=== PATIENT | female | born 1990 | race Caucasian/White ===

== ENCOUNTER 2019-06-27 09:45 | Emergency (ER) | payer SELFPAY ==
[~2019-06-27] VITALS: Ht 162.6 cm; Wt 88.0 kg
[2019-06-27 09:53] VITALS: BP 129/78
--- NOTE | 2019-06-27 09:54 | NUR ---
TO ED 11 WITH STEADY GAIT.
--- NOTE | 2019-06-27 10:05 | NUR ---
PATIENT COMPLAINS OF COUGH SINCE LAST TUESDAY. PATIENT STATES SHE HAS RUNNY NOSE, COLD, DRY COUGH, AND SNEEZING. LUNGS CLEAR TO AUSCULATION BILATERALLY. CHEST PAIN PRESENT WITH COUGH. PAIN 7/10. PATIENT HAS BEEN TAKING DAYQUIL AND IBUPROFEN. VS STABLE, PATIENT IS ALERT AND AWAKE, BED IN LOWEST POSITION, LOCKED, AND BEDRAIL UPX1. NO PAST MEDICAL HISTORY.
--- NOTE | 2019-06-27 10:05 | NUR ---
DOCTOR ISAAC AT BEDSIDE
--- NOTE | 2019-06-27 10:18 | NUR ---
XRAY AT BEDSIDE
[2019-06-27 10:49] VITALS: BP 128/80
--- NOTE | 2019-06-27 10:52 | NUR ---
Patient discharged with v/s stable. Written and verbal after care instructions given ABOUT VIRAL INFECTION and explained. Patient verbalized understanding OF VIRAL INFECTION. Ambulatory with steady gait. All questions addressed prior to discharge. Advised to follow up with PMD. PATIENT GIVEN EXCUSE FOR WORK.
== END 2019-06-27 10:52 | disposition home or self-care (01) ==
LOC: MED 09:45
DX: B34.9 Viral infection, unspecified (principal)
CPT/HCPCS: 71045; 99283; Q0092

== ENCOUNTER 2022-02-10 11:01 | Emergency (ER) | payer OTHER ==
[~2022-02-10] VITALS: Ht 160 cm; Wt 109.8 kg
[2022-02-10 11:04] VITALS: BP 143/78
--- NOTE | 2022-02-10 11:06 | NUR ---
PT AMBULATED TO BED 07.
--- NOTE | 2022-02-10 11:20 | NUR ---
31 Y/O FEMALE C/O R ELBOW PAIN X4 WEEKS. PT REPORTS GOING TO THE GYM YESTERDAY AND DID PULL UPS AND STATES THAT THE PAIN INCREASED. PT DENIES PREVIOUS INJURY/TRAUMA. DENIES SEEING PHYSICIAN ABOUT PAIN UNTIL NOW SINCE PAIN HAS INCREASED. MILD SWELLING WITH MILD BRUISING/RED DOTS TO ELBOW. FULL ROM. +2 RADIAL PULSES EQUAL BILATERALLY. PT REPORTS TINGLING DOWN ARM WITH PAIN INCREASES WITH MOVEMENT. DENIES NUMBNESS AT THIS TIME BUT REPORTS NUMBNESS WHEN SHE WAKES UP. PT DENIES TAKING ANYTHING FOR PAIN. PT A/O X4 WITH EVEN AND UNLABORED RESPIRATIONS. PMH:DENIES NKDA
--- NOTE | 2022-02-10 11:45 | NUR ---
DR BURNS AT BEDSIDE EVALUATING PT
[2022-02-10] MEDS ORDERED: KETOROLAC 30 MG/ML VIAL IM ONE (11:55)
[2022-02-10] MEDS ORDERED: methylPREDNISolone SS 125 MG/2 ML VIAL IVP ONE (11:55)
[2022-02-10] MEDS ORDERED: IBUP-1842 PO (11:59)
--- NOTE | 2022-02-10 12:21 | NUR ---
Patient discharged with v/s stable. Written and verbal after care instructions ABOUT TENNIS ELBOW AND TENNIS ELBOW REHAB given and explained. Patient alert, oriented and verbalized understanding of instructions. Ambulatory with steady gait. All questions addressed prior to discharge. ID band removed. Patient advised to follow up with PMD. Rx of IBUPROFEN given. Patient educated on indication of medication including possible reaction and side effects. Opportunity to ask questions provided and answered.
== END 2022-02-10 12:21 | disposition home or self-care (01) ==
LOC: MED 11:01
DX: M77.11 Lateral epicondylitis, right elbow (principal)
CPT/HCPCS: 81002; 81025; 96372; 96374; 99284; J1885; J2930

== ENCOUNTER 2022-11-24 14:34 | Emergency (ER) | payer MEDICAID, OTHER ==
[~2022-11-24] VITALS: Ht 160 cm; Wt 108.9 kg
[~2022-11-24 14:34] MED LIST: IBUP-1842 PO
[2022-11-24 14:51] VITALS: BP 135/69
--- NOTE | 2022-11-24 15:16 | NUR ---
32/F WALKED IN C/O LEFT SIDED HEADACHE ONSET 4 DAYS AGO. PT REPORTS TAKING ATBX FOR EAR INFECTION TO THE LEFT SIDE. 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 DENIES DIZZINESS OR NV. PMH: DENIES
[2022-11-24 16:14] LABS: BASOPHILS # (AUTO) 0.1 K/uL (0.00-0.22); BASOPHILS % (AUTO) 0.9 % (0.0-2.0); EOSINOPHILS # (AUTO) 0.3 K/uL (0-0.4); EOSINOPHILS % (AUTO) 3.1 % (0.0-4.0); HEMATOCRIT 41.2 % (36-48); HEMOGLOBIN 14.2 g/dL (12.0-16.0); LYMPHOCYTES % (AUTO) 34.1 % (20.5-51.1); MEAN CORPUSCULAR HEMOGLOBIN 32 pg (27-31); MEAN CORPUSCULAR HGB CONC 34 g/dL (33-37); MEAN CORPUSCULAR VOLUME 93.6 fL (80-94); MONOCYTES # (AUTO) 0.4 K/uL (0.8-1.0); MONOCYTES % (AUTO) 4.9 % (1.7-9.3); PLATELET COUNT (AUTO) 338 K/uL (140-450); RED CELL DISTRIBUTION WIDTH 13.5 % (11.6-13.7); WHITE BLOOD COUNT (AUTO) 8.8 K/uL (4.8-10.8)
[2022-11-24 16:16] LABS: APPEARANCE,URINE CLEAR (CLEAR); BILIRUBIN,URINE NEGATIVE (NEGATIVE); BLOOD, URINE 3+ (NEGATIVE); COLOR,URINE YELLOW (YELLOW); LEUKOCYTE ESTERASE ,URINE 2+ (NEGATIVE); NITRITE, URINE NEGATIVE (NEGATIVE); UGLUCOSE NEGATIVE (NEGATIVE)
[2022-11-24 16:30] LABS: ALBUMIN 3.4 g/dL (3.4-5.0); ANION GAP 13.7 (8-16); CARBON DIOXIDE 27.7 mmol/L (21-32); CREATININE 0.9 mg/dL (0.6-1.3); POTASSIUM 4.4 mmol/L (3.5-5.1); TOTAL BILIRUBIN 0.3 mg/dL (0.0-1.0)
[2022-11-24 16:38] LABS: RBC,URINE 11-20 (MOD) /HPF (0-5)
[2022-11-24] MEDS ORDERED: NITR100C7 PO (16:55)
== END 2022-11-24 16:50 | disposition home or self-care (01) ==
LOC: MED 14:34
DX: R51.9 Headache, unspecified (principal); N39.0 Urinary tract infection, site not specified
CPT/HCPCS: 36415; 80053; 81001; 81025; 83690; 85025; 87086; 99283

== ENCOUNTER 2022-12-20 21:31 | Inpatient (IN) | payer OTHER ==
[~2022-12-20] VITALS: Ht 157.5 cm; Wt 103.9 kg
[~2022-12-20 21:31] MED LIST changes: +NITR100C7 PO
[2022-12-20 22:13] VITALS: BP 131/94
[2022-12-20 23:19] LABS: BASOPHILS # (AUTO) 0.1 K/uL (0.00-0.22); BASOPHILS % (AUTO) 0.6 % (0.0-2.0); EOSINOPHILS # (AUTO) 0.1 K/uL (0-0.4); EOSINOPHILS % (AUTO) 0.6 % (0.0-4.0); HEMATOCRIT 41.5 % (36-48); LYMPHOCYTES # (AUTO) 2.5 K/uL (2.5-16.5); LYMPHOCYTES % (AUTO) 13.9 % (20.5-51.1); MEAN CORPUSCULAR HEMOGLOBIN 31 pg (27-31); MEAN CORPUSCULAR HGB CONC 34 g/dL (33-37); MEAN CORPUSCULAR VOLUME 92.1 fL (80-94); MONOCYTES % (AUTO) 5.7 % (1.7-9.3); NEUTROPHILS # (AUTO) 14.2 K/uL (1.8-7.7); NEUTROPHILS % (AUTO) 79.2 % (42.2-75.2); PLATELET COUNT (AUTO) 257 K/uL (140-450); RED CELL DISTRIBUTION WIDTH 13.1 % (11.6-13.7); WHITE BLOOD COUNT (AUTO) 17.9 K/uL (4.8-10.8)
[2022-12-20 23:34] LABS: APPEARANCE,URINE SL CLOUDY (CLEAR); BILIRUBIN,URINE NEGATIVE (NEGATIVE); BLOOD, URINE TRACE-I (NEGATIVE); COLOR,URINE YELLOW (YELLOW); LEUKOCYTE ESTERASE ,URINE NEGATIVE (NEGATIVE); NITRITE, URINE NEGATIVE (NEGATIVE); UGLUCOSE NEGATIVE (NEGATIVE)
[2022-12-20 23:46] LABS: RBC,URINE 0-5 /HPF (0-5); WBC,URINE 0-5 /HPF (0-5)
[2022-12-20 23:59] LABS: ANION GAP 12.6 (8-16); CARBON DIOXIDE 28.2 mmol/L (21-32); CREATININE 0.8 mg/dL (0.6-1.3); POTASSIUM 3.8 mmol/L (3.5-5.1)
[2022-12-21 00:04] LABS: ALBUMIN 3.7 g/dL (3.4-5.0)
--- NOTE | 2022-12-21 00:29 | NUR ---
PT AMBULATED TO ER BED 5
[2022-12-21] MEDS ORDERED: ONDANSETRON 4 MG/2 ML VIAL IVP PRN ×2 (01:20→17:15)
[2022-12-21] MEDS ORDERED: MORPHINE SULFATE 10 MG/ML VIAL IVP ONE (01:20)
--- NOTE | 2022-12-21 02:00 | NUR ---
32YR OLD FEMALE BIB SELF C/O ABD PAIN X1DAY. PT STATES HAVING PAIN IN RLQ X1DAY. DENIES N/V/D DENIES FEVER CP OR SOB. PT IS 1MONTH POST PART. FULL TERM DELIVERY. DENIES VAG BLEEDING. 5/10 SHARP PAIN RESP EVEN AND UNLABORED. ON BEDSIDE QUILTER FIXER. IS AT BEDSIDE NKDA NO MED HX
[2022-12-21] MEDS ORDERED: LORazepam 2 MG/ML VIAL IVP ONE (02:40)
[2022-12-21] MEDS: LACTATED RINGERS 1,000 ML IV SCH ×3 (02:49→23:38)
--- NOTE | 2022-12-21 02:59 | NUR ---
PT WILL BE GOING TO SURGERY IN AM. PT DOES HAVE A APPENDICITIS. PT IS AWARE OF ADMISSION AND SURGERY. PT BECAME VERY ANXIOUS STARTED SHAKING STATING SHE WAS COLD. PT IS ON CONTROL VALVE MECHANIC HR 126 EKG DONE AT BEDSIDE.
[2022-12-21] MEDS ORDERED: NACL 0.9% 1,000 ML IV ONE (03:05)
--- NOTE | 2022-12-21 03:35 | NUR ---
PT IS NPO
--- NOTE | 2022-12-21 04:01 | NUR ---
PT SLEEPING ON BEDSIDE FREEZER OPERATOR. HOB ELEVATED. RESP EVEN AND UNLABORED. HR 135 . AT BEDSIDE
--- NOTE | 2022-12-21 07:50 | NUR ---
Patients having anxiety attack. Paged Dr Jerez. Waiting for call back from doctor
[2022-12-21 07:56] LABS: PROTHROMBIN TIME 9.8 secs (10.8-13.4)
[2022-12-21] MEDS ORDERED: LORazepam 2 MG/ML VIAL IM/IVP PRN (08:30)
[2022-12-21 08:51] VITALS: BP 106/44
--- NOTE | 2022-12-21 08:51 | NUR ---
PT ARRIVED TO UNIT VIA GUNEY. AMBULATED FROM GURNEY TO BED. ORIENTED PT TO UNIT, RESTROOM, AND CALL LIGHT. PT IS AOX4, ABLE TO VERBALIZE NEEDS. RESPIRATIONS EVEN AND UNLABORED ON RA. SKIN WARM AND DRY. IV ON R HAND 22G INFUSING LR @ 75. CALL LIGHT WITHIN REACH, ALL SAFETY PRECAUTIONS IN PLACE.
--- NOTE | 2022-12-21 08:59 | NUR ---
Patient will be admitted to care of Dr Jerez. Admited to telemetry. Will go to room 106A. Belongings list completed. Report to Beba GUZMÁN.
--- NOTE | 2022-12-21 09:04 | NUR ---
PATIENT HAS BEEN SCREENED AND CATEGORIZED LOW NUTRITION RISK. PATIENT WILL BE SEEN WITHIN 7 DAYS OF ADMISSIO 12/21/22-12/28/[address] BY RUDOLPH GANT RD
[2022-12-21] MEDS: MORPHINE SULFATE 4 MG/ML SYR IVP PRN ×2 (13:30→21:32)
--- NOTE | 2022-12-21 15:27 | NUR ---
PT TAKEN OFF UNIT TO OR
[2022-12-21] MEDS ORDERED: BUPIVACAINE-MPF/EPI 0.25% 30 ML VIAL INJ ONE (15:44)
[2022-12-21] MEDS ORDERED: SUCCINYLCHOLINE CHLORIDE 200 MG/10 ML VIAL IVP ONE (16:00)
[2022-12-21] MEDS ORDERED: PROPOFOL 200 MG/20 ML VIAL IV ONE (16:00)
--- NOTE | 2022-12-21 16:00 | NUR ---
PATIENT BACK IN MST
[2022-12-21] MEDS ORDERED: DESFLURANE 240 ML BTL INH ONE (16:15)
[2022-12-21] MEDS ORDERED: KETOROLAC 30 MG/ML VIAL ONE (16:25)
[2022-12-21] MEDS ORDERED: DEXAMETHASONE 4 MG/ML VIAL ONE (16:25)
[2022-12-21] MEDS ORDERED: ONDANSETRON 4 MG/2 ML VIAL ONE (16:25)
[2022-12-21] MEDS ORDERED: ROCURONIUM 50 MG/5 ML VIAL IV ONE (16:25)
[2022-12-21] MEDS ORDERED: fentaNYL citrate 0.05 MG/ML VIAL ONE (16:26)
[2022-12-21] MEDS ORDERED: SUGAMMADEX SODIUM 200 MG/2 ML VIAL IV ONE (16:27)
[2022-12-21] MEDS ORDERED: HYDROmorphone PFS 2 MG/ML SYR ONE (16:27)
[2022-12-21] MEDS ORDERED: HYDROmorphone 1 MG/ML AMP IVP PRN (17:15)
--- NOTE | 2022-12-21 19:10 | NUR ---
ENDORSED PATIENT TO EARLY CHILDHOOD DIRECTOR NURSE FOR CONTINUITY OF CARE. PT STABLE.
[2022-12-21 20:00] VITALS: BP 120/80
[2022-12-22] MEDS: ACETAMINOPHEN 325 MG TAB PO PRN ×2 (06:47→13:00)
[2022-12-22 06:51] LABS: BASOPHILS % (AUTO) 0.2 % (0.0-2.0); HEMATOCRIT 37.3 % (36-48); HEMOGLOBIN 12.6 g/dL (12.0-16.0); LYMPHOCYTES % (AUTO) 7.5 % (20.5-51.1); MEAN CORPUSCULAR HEMOGLOBIN 31 pg (27-31); MEAN CORPUSCULAR HGB CONC 34 g/dL (33-37); MEAN CORPUSCULAR VOLUME 92.4 fL (80-94); MONOCYTES # (AUTO) 0.4 K/uL (0.8-1.0); MONOCYTES % (AUTO) 3.3 % (1.7-9.3); NEUTROPHILS # (AUTO) 11.7 K/uL (1.8-7.7); PLATELET COUNT (AUTO) 180 K/uL (140-450); RED BLOOD CELL COUNT(AUTO) 4.03 MIL/uL (4.20-5.40); RED CELL DISTRIBUTION WIDTH 13.6 % (11.6-13.7); WHITE BLOOD COUNT (AUTO) 13.1 K/uL (4.8-10.8)
[2022-12-22 07:07] LABS: ANION GAP 13.2 (8-16); CARBON DIOXIDE 24.2 mmol/L (21-32); CREATININE 0.9 mg/dL (0.6-1.3); POTASSIUM 3.4 mmol/L (3.5-5.1)
[2022-12-22 08:00] VITALS: BP 120/70
[2022-12-22] MEDS: HYDROcodone/APAP 5/325 MG 1 TAB TAB PO PRN ×3 (10:16→20:55)
[2022-12-22] MEDS ORDERED: POTASSIUM CHLORIDE 10 MEQ TABER PO SCH (11:31)
[2022-12-22] MEDS: POTASSIUM CHL 20 MEQ/D5-1/2NS 1,000 ML IV SCH ×2 (11:42→21:30)
[2022-12-22 16:00] VITALS: BP 130/80
--- NOTE | 2022-12-22 17:46 | NUR ---
Patient ambulation for second time via 1 person standby assist in main hallway of [facility].
[2022-12-23] MEDS: HYDROcodone/APAP 5/325 MG 1 TAB TAB PO PRN ×2 (07:59→13:13)
[2022-12-23 08:00] VITALS: BP 133/75
[2022-12-23] MEDS: POTASSIUM CHL 20 MEQ/D5-1/2NS 1,000 ML IV SCH (08:00)
--- NOTE | 2022-12-23 12:03 | NUR ---
Doctor Sheila request for stat potassium and follow up with result to his phone.
--- NOTE | 2022-12-23 13:17 | NUR ---
Left message with Viktoria for Doctor Sheila regarding potassium result of 3.9 mg/dL.
--- NOTE | 2022-12-23 14:21 | NUR ---
DISCHARGE PLANNING: THIS IS A 32 Y/O FEMALE PATIENT FROM HOME, WHO CAME IN TO THE ED FOR 1 DAY HISTORY OF INTRACTABLE RLQ PAIN. PATIENT PRESENTED TACHYCARDIC AND MILDLY HYPERTENSIVE. DENIES PAST MEDICAL AND SURGICAL HISTORY. ALL INFORMATION OBTAINED FROM ED DOCUMENTATION. CT ABD/PELVIS SHOWED ACUTE APPENDICITIS. SURGERY CONSULTED. S/P LAP APPY 12.21.22. ON IV CEFOXITN. TOLERATED REGULAR DIET. AMBULATING. PER SURGERY, DC PLANNING PER HOSPITALIST AND TO FOLLOW UP AT CLINIC AFTER 10 DAYS. TENTATIVE DC PLAN TO HOME ONCE STABLE AND CLEARED BY ATTENDING. CM TO FOLLOW NEEDED.
[2022-12-23 16:00] VITALS: BP 112/69
[2022-12-23] MEDS ORDERED: AMOX-999 PO (16:15)
[2022-12-23] MEDS ORDERED: ACET-8905 PO (16:16)
[2022-12-23] MEDS: ACETAMINOPHEN 325 MG TAB PO PRN (16:23)
[2022-12-23 17:36] VITALS: BP 112/69
== END 2022-12-23 18:00 | disposition home or self-care (01) | DRG 854 ==
LOC: MED 21:31 → MTU 12-21 01:25 → OBSVTOIN 12-21 01:25 → MTU 12-21 01:25
PROVIDERS: ADMIT Student in an Organized Health Care Education/Training Program; ATTEND Student in an Organized Health Care Education/Training Program
PROC: 0DTJ4ZZ Resection of Appendix, Percutaneous Endoscopic Approach (ICD-10-PCS; principal; 2022-12-21 16:00)
DX: A41.9 Sepsis, unspecified organism (principal); K35.891 Other acute appendicitis without perforation, with gangrene; Z68.41 Body mass index [BMI] 40.0-44.9, adult; I10 Essential (primary) hypertension; D72.829 Elevated white blood cell count, unspecified; E87.6 Hypokalemia; E66.01 Morbid (severe) obesity due to excess calories; Z20.822 Contact with and (suspected) exposure to COVID-19
CPT/HCPCS: 36415; 71045; 80048; 80053; 81001; 82374; 83605; 83690; 84132; 85025; 85610; 85730; 86886; 86900; 86901; 87040; 87070; 87075; 87205; 96365; 96376; 99285; C1758; J0330; J0694; J1100; J1170; J1885; J2060; J2270; J2405; J2704; J3010; J3490; J7060; J7120; Q0092

== ENCOUNTER 2022-12-28 08:32 | Inpatient (IN) | payer OTHER ==
[~2022-12-28] VITALS: Ht 162.6 cm; Wt 105.2 kg
[~2022-12-28 08:32] MED LIST changes: +ACET-8905 PO; +AMOX-999 PO; -NITR100C7 PO
[2022-12-28 08:50] VITALS: BP 133/73
[2022-12-28 09:13] LABS: APPEARANCE,URINE HAZY (CLEAR); BILIRUBIN,URINE NEGATIVE (NEGATIVE); BLOOD, URINE 3+ (NEGATIVE); COLOR,URINE YELLOW (YELLOW); LEUKOCYTE ESTERASE ,URINE 1+ (NEGATIVE); NITRITE, URINE NEGATIVE (NEGATIVE); UGLUCOSE NEGATIVE (NEGATIVE)
[2022-12-28 10:03] LABS: BASOPHILS # (AUTO) 0.1 K/uL (0.00-0.22); BASOPHILS % (AUTO) 0.5 % (0.0-2.0); EOSINOPHILS # (AUTO) 0.1 K/uL (0-0.4); EOSINOPHILS % (AUTO) 0.8 % (0.0-4.0); HEMATOCRIT 32.2 % (36-48); HEMOGLOBIN 11.2 g/dL (12.0-16.0); LYMPHOCYTES # (AUTO) 2.4 K/uL (2.5-16.5); LYMPHOCYTES % (AUTO) 15.5 % (20.5-51.1); MEAN CORPUSCULAR HEMOGLOBIN 31 pg (27-31); MEAN CORPUSCULAR HGB CONC 35 g/dL (33-37); MEAN CORPUSCULAR VOLUME 90.1 fL (80-94); MONOCYTES # (AUTO) 1.5 K/uL (0.8-1.0); NEUTROPHILS # (AUTO) 11.2 K/uL (1.8-7.7); NEUTROPHILS % (AUTO) 73.2 % (42.2-75.2); PLATELET COUNT (AUTO) 463 K/uL (140-450); RED BLOOD CELL COUNT(AUTO) 3.57 MIL/uL (4.20-5.40); RED CELL DISTRIBUTION WIDTH 14.4 % (11.6-13.7); WHITE BLOOD COUNT (AUTO) 15.3 K/uL (4.8-10.8)
[2022-12-28 11:20] LABS: ALBUMIN 2.2 g/dL (3.4-5.0); ANION GAP 15.1 (8-16); CARBON DIOXIDE 28.5 mmol/L (21-32); CREATININE 0.7 mg/dL (0.6-1.3); POTASSIUM 3.6 mmol/L (3.5-5.1); TOTAL BILIRUBIN 0.3 mg/dL (0.0-1.0)
[2022-12-28] MEDS ORDERED: VANCOMYCIN 1,000 MG in DEXTROSE 5% 250 ML IV ONE (12:50)
[2022-12-28] MEDS ORDERED: PIPERACILLIN/TAZOBACTAM 3.375 GM in DEXTROSE 5% 50 ML IV ONE (12:50)
[2022-12-28] MEDS ORDERED: NACL 0.9% 1,000 ML IV ONE ×2 (12:55)
[2022-12-28] MEDS ORDERED: ONDANSETRON 4 MG/2 ML VIAL IVP PRN (13:30)
[2022-12-28] MEDS ORDERED: MAG SULF 2000 MG/WATER PREMIX 50 ML IV PRN (13:30)
[2022-12-28] MEDS ORDERED: LORazepam 1 MG TAB PO PRN (13:30)
[2022-12-28] MEDS ORDERED: KCL 20 MEQ IN 100 mL PREMIX 200 ML IV PRN (13:30)
[2022-12-28] MEDS ORDERED: MORPHINE SULFATE 4 MG/ML SYR IVP PRN (13:30)
[2022-12-28] MEDS ORDERED: PIPERACILLIN/TAZOBACTAM 3.375 GM VIAL IV ONE (14:08)
[2022-12-28 14:55] LABS: ALBUMIN 2.2 g/dL (3.4-5.0); ANION GAP 10.2 (8-16); CARBON DIOXIDE 29.2 mmol/L (21-32); CREATININE 0.7 mg/dL (0.6-1.3); POTASSIUM 3.4 mmol/L (3.5-5.1); TOTAL BILIRUBIN 0.3 mg/dL (0.0-1.0)
[2022-12-28] MEDS ORDERED: CLONIDINE HYDROCHLORIDE 0.1 MG TAB PO PRN (15:05)
[2022-12-28] MEDS ORDERED: cefTRIAXone 1,000 MG VIAL ONE (15:32)
[2022-12-28] MEDS: ACETAMINOPHEN 325 MG TAB PO PRN (16:11)
--- NOTE | 2022-12-28 16:27 | NUR ---
PT ARRIVED ON UNIT VIA WHEELCHAIR FROM ER. ORIENTED PT TO UNIT, BED MECHANICS, CALL LIGHT. PT STATES SHE IS FREEZING, TEMPORAL TEMP UPON ARRIVAL 97.7. REASSESSED TEMP, 100.1. PROVIDED NONPHARM INTERVENTIONS FOR SLIGHT FEVER. WILL CONTINUE WITH PATIENT CARE.
[2022-12-28 16:30] VITALS: BP 144/78
[2022-12-28] MEDS: NACL 0.9% 1,000 ML IV SCH (16:30)
--- NOTE | 2022-12-28 16:40 | NUR ---
Patient will be admitted to care of MD KIANA. Admited to MED SURG. Will go to room 104A. Belongings list completed. Report to NESHA CORTEZ.
[2022-12-28] MEDS: HYDROcodone/APAP 5/325 MG 1 TAB TAB PO PRN (17:26)
--- NOTE | 2022-12-28 19:20 | NUR ---
ENDORSED PT TO NIGHTSHIFT NURSE FOR CONTINUITY OF CARE. PT STABLE, IN BED, NO SIGNS OF DISTRESS, NO REPORTS OF PAIN OR DISCOMFORT.
--- NOTE | 2022-12-28 19:20 | NUR ---
RECEIVED ENDORSEMENT FROM DAY SHIFT NURSE FOR CONTINUITY OF CARE. PT IS AWAKE, ALERT AND VERBALLY RESPONSIVE. PT VERBALIZED OF VERY MILD PAIN ON ABDOMINAL AREA BUT VERY BEARABLE AND IT DOES NOT BOTHER HER. IV SITE ON RIGHT AC INTACT AND PATENT.
[2022-12-28 20:00] VITALS: BP 124/69
[2022-12-28] MEDS: metroNIDAZOLE 500 MG/NS PREMIX 100 ML IV SCH (20:19)
--- NOTE | 2022-12-28 20:30 | NUR ---
IV ANTIBIOTIC FLAGYL ADMINISTERED, PT TOLERATED WELL, NO NOTED ANY SIDE REACTION OR ALLERGY REACTION.
--- NOTE | 2022-12-28 20:53 | NUR ---
DR NULL CALLED AND INQUIRED WHY THE CT ASPIRATION/BIOPSY WAS NOT DONE TODAY, CALLED CT AND TALKED TO GRINDER SETUP OPERATOR SARA, STATED DR TEJEDA IS DONE FOR THE DAY AND WILL DO IT SOMETIME TOMORROW MORNING, DR NULL MADE AWARE AND STATED HE NEEDS TO BE NOTIFIED ABOUT THE FINDINGS, NESHA TOVAR MADE AWARE AND WILL ENDORSE TO CHARGE NURSE TOMORROW, ORDERED PT/PTT IN AM.
[2022-12-28] MEDS: POTASSIUM CHLORIDE 10 MEQ TABER PO PRN (21:02)
--- NOTE | 2022-12-28 21:02 | NUR ---
PT POTASSIUM LAB RESULTS IS 3.4, K DUR ADMINISTERED ORDER.
[2022-12-29] VITALS: BP_SYST 124; BP_SYST 150; BP_DIAS 69; BP_DIAS 71
[2022-12-29] MEDS: HYDROcodone/APAP 5/325 MG 1 TAB TAB PO PRN ×4 (01:17→21:52)
[2022-12-29] MEDS: NACL 0.9% 1,000 ML IV SCH ×2 (02:00→14:50)
[2022-12-29 04:00] VITALS: BP 119/74
[2022-12-29] MEDS: metroNIDAZOLE 500 MG/NS PREMIX 100 ML IV SCH ×3 (05:14→20:19)
[2022-12-29 06:46] LABS: BASOPHILS # (AUTO) 0.1 K/uL (0.00-0.22); BASOPHILS % (AUTO) 0.4 % (0.0-2.0); EOSINOPHILS # (AUTO) 0.1 K/uL (0-0.4); EOSINOPHILS % (AUTO) 0.4 % (0.0-4.0); HEMATOCRIT 32.2 % (36-48); HEMOGLOBIN 10.8 g/dL (12.0-16.0); LYMPHOCYTES # (AUTO) 2.7 K/uL (2.5-16.5); LYMPHOCYTES % (AUTO) 15.1 % (20.5-51.1); MEAN CORPUSCULAR HEMOGLOBIN 31 pg (27-31); MEAN CORPUSCULAR HGB CONC 34 g/dL (33-37); MEAN CORPUSCULAR VOLUME 91.4 fL (80-94); MONOCYTES # (AUTO) 1.3 K/uL (0.8-1.0); MONOCYTES % (AUTO) 7.4 % (1.7-9.3); NEUTROPHILS # (AUTO) 13.9 K/uL (1.8-7.7); NEUTROPHILS % (AUTO) 76.7 % (42.2-75.2); PLATELET COUNT (AUTO) 459 K/uL (140-450); RED BLOOD CELL COUNT(AUTO) 3.52 MIL/uL (4.20-5.40); RED CELL DISTRIBUTION WIDTH 13.6 % (11.6-13.7); WHITE BLOOD COUNT (AUTO) 18.1 K/uL (4.8-10.8)
[2022-12-29 08:00] VITALS: BP 137/75
[2022-12-29 08:00] LABS: PROTHROMBIN TIME 10.5 secs (10.8-13.4)
[2022-12-29 09:16] LABS: ALBUMIN 2.1 g/dL (3.4-5.0); ANION GAP 13.1 (8-16); CARBON DIOXIDE 25.6 mmol/L (21-32); CREATININE 0.8 mg/dL (0.6-1.3); POTASSIUM 3.7 mmol/L (3.5-5.1); TOTAL BILIRUBIN 0.4 mg/dL (0.0-1.0)
--- NOTE | 2022-12-29 09:16 | NUR ---
PATIENT HAS BEEN SCREENED AND CATEGORIZED LOW NUTRITION RISK. PATIENT WILL BE SEEN WITHIN 7 DAYS OF ADMISSION. 12/28/22-01/04/[address] RUDOLPH GANT RD
[2022-12-29] MEDS ORDERED: FLUMAZENIL 0.5 MG/5 ML VIAL IVP ONE (13:06)
[2022-12-29] MEDS ORDERED: NALOXONE 0.4 MG/ML VIAL ONE (13:06)
[2022-12-29] MEDS ORDERED: fentaNYL citrate 0.05 MG/ML VIAL ONE (13:06)
[2022-12-29] MEDS ORDERED: MIDAZOLAM 2 MG/2 ML VIAL ONE (13:07)
--- NOTE | 2022-12-29 15:35 | NUR ---
DC PLANNIN YRS OLD FEMALE PATIENT WAS ADMITTED FROM HOME, WITH A DX OF ABDOMINAL ABSCESS PATIENT HAS A HISTORY OF HTN, AND RECENT APPENDECTOMY INTRACTABLE RLQ PAIN. CT ABD/PELVIS SHOWED ABD ABSCESS NEAR APPENDICAL COLITH. ADMINISTERED IVF, IV ABX IV ROCEPHIN. CONSULTED WITH ID AND SURGEON DR HAIDER. DC PLANNING TO GO HOME WHEN STABLE. CM TO FOLLOW. Addendum: 01/04/23 at 1052 by Glenda Bojorquez RN DC PLANNING: S/P POSTOPERATIVE DAY#5 FOLLOWING EXP LAP AND DRAINAGE OF RETROPERITONEAL ABSCESS. CT ABD/PELVIS SHOWED MULTIPLE INTRA- ABDOMINAL ABSCESSES. SEEN BY ID AND SURGEON DR NULL DISCUSSED WITH IR DR LAW AND RECOMMENDED IR TO PERFORM CT GUIDED DRAINAGE OF THE ABSCESSES. CM TO FOLLOW Addendum: 01/06/23 at 1358 by ALTAF STEPHEN CM RECEIVED ORDER FOR PATIENT TO RECEIVED HOME HEALTH FOR PERC DRAIN CARE. FAXED ALL PAPERWORK TO JANUARY AT [facility]. CALLED [facility] SO SEE IF THEY WERE ABLE TO ARRANGE THE HOME HEALTH HE SAID THAT HE WOULD CALL ME WITH ACCEPTING AGENCY. Addendum: 01/06/23 at 1520 by Glenda Bojorquez RN DC PLANNING: DR YARED PATEL ORDERED CT ABD/PELVIS WITH CONTRAST AND SHOWED SMALL RESIDUAL REMAINING ORDERED CT GUIDED PARACENTESIS. UPDATE GIVEN TO LEYLA JACK AT [facility]. PT IS NPO. CM TO FOLLOW Addendum: 01/07/23 at 1156 by Glenda Bojorquez RN DC PLANNING: SCHEDULED WITH IR FOR HEPATIC ABSCESS DRAINAGE TODAY. CONTINUED IV ABX FLAGYL AND ROCEPHIN. ID AND SURGEON FOLLOWING. CM TO FOLLOW Addendum: 01/10/23 at 1220 by ALTAF STEPHEN CM RECEIVED CALL FROM JANUARY AT [facility], AND [facility] ACCEPTED PATIENT AND WILL BE CONTACTING HER DIRECTLY.
[2022-12-29 16:00] VITALS: BP 135/78
--- NOTE | 2022-12-29 18:35 | NUR ---
DR. NULL CALLED AND INFORM THAT PATIENT IW SCHEDULE TO HAVE LAPAROSCOPY DRAINAGE OF ABDOMINAL ABSCESS W/ POSSIBLE EXPLORATORY LAPAROSCOPIC SURGERY AT 0730, 12/30/2022; PATIENT AWARE, AND WILL START NPO FROM MIDNIGHT FOR PROCEDURE.
--- NOTE | 2022-12-29 19:16 | NUR ---
ENDORSE PATIENT IN STABLE CONDITION TO PM SHIFT NURSE WHILE NS INFUSING AT 80ML/HR VIA LAC. SURGERY CONSENT IS READY FOR DR. NULL TO SIGN Addendum: 12/29/22 at 1921 by Estephania Villalpando RN ADDENDUM: IV SITE IS RAC INSTEAD LAC
--- NOTE | 2022-12-29 19:17 | NUR ---
RECEIVED PT FROM MORNING SHIFT NURSE. PT IS AOX4, AMBULATORY, ABLE TO VERBALIZE NEEDS AND ABLE TO FOLLOW COMMANDS. PT IS ON ROOM AIR AND NPO EXCEPT MED. PT HAS IV ON RIGHT AC GAUGE 20 RUNNING WITH NS AT 80ML/HR. NO COMPLAIN OF PAIN. NO S/S OF RESPIRATORY DISTRESS. ALL SAFETY MEASURES IMPLEMENTED. BED IN LOW POSITION, BED WHEELS ON LOCK AND CALL LIGHT WITHIN REACH.
[2022-12-29] MEDS: ZOLPIDEM 5 MG TAB PO PRN (20:20)
--- NOTE | 2022-12-29 20:20 | NUR ---
SCHEDULED AND PRESCRIBED MEDICATION WAS GIVEN TO PT. AMBIEN AWAS ALSO GIVEN PER PT REQUEST. ALL SAFETY MEASURES IMPLEMENTED. BED IN LOW POSITION, BED WHEELS ON LOCK AND CALL LIGHT WITHIN REACH.
--- NOTE | 2022-12-29 21:52 | NUR ---
PRN PAIN MEDICATION WAS GIVEN TO PT DUE TO PAIN ON THE BACK WITH PAIN SCALE OF 6/10. ALL SAFETY MEASURES IMPLEMENTED. BED IN LOW POSITION, BED WHEELS ON LOCK AND CALL LIGHT WITHIN REACH.
--- NOTE | 2022-12-30 | NUR ---
PT IS ON SLEEP. CHEST RISE AND FALL SYMMTERICALLY NOTED. RESPIRATION IS EVEN AND UNLABORED. ALL SAFETY MEASURES IMPLEMENTED. BED IN LOW POSITION, BED WHEELS ON LOCK AND CALL LIGHT WITHIN REACH.
[2022-12-30] MEDS: NACL 0.9% 1,000 ML IV SCH ×2 (03:28→15:33)
[2022-12-30 04:00] VITALS: BP 123/85
[2022-12-30] MEDS: ACETAMINOPHEN 325 MG TAB PO PRN (04:05)
[2022-12-30] MEDS: metroNIDAZOLE 500 MG/NS PREMIX 100 ML IV SCH ×3 (04:07→20:13)
--- NOTE | 2022-12-30 04:07 | NUR ---
SCHEDULED AND PRESCRIBED MEDICATION WAS GIVEN TO PT. TYLENOL WAS ALSO GIVEN TO PT DUE TO HEADACHE. ALL SAFETY MEASURES IMPLEMENTED. BED IN LOW POSITION, BED WHEELS ON LOCK AND CALL LIGHT WITHIN REACH.
[2022-12-30 06:42] LABS: BASOPHILS % (AUTO) 0.2 % (0.0-2.0); EOSINOPHILS % (AUTO) 0.2 % (0.0-4.0); HEMATOCRIT 32.4 % (36-48); HEMOGLOBIN 10.9 g/dL (12.0-16.0); LYMPHOCYTES # (AUTO) 2.3 K/uL (2.5-16.5); LYMPHOCYTES % (AUTO) 11.1 % (20.5-51.1); MEAN CORPUSCULAR HEMOGLOBIN 31 pg (27-31); MEAN CORPUSCULAR HGB CONC 34 g/dL (33-37); MEAN CORPUSCULAR VOLUME 91.8 fL (80-94); MONOCYTES # (AUTO) 1.5 K/uL (0.8-1.0); MONOCYTES % (AUTO) 7.3 % (1.7-9.3); NEUTROPHILS % (AUTO) 81.2 % (42.2-75.2); PLATELET COUNT (AUTO) 475 K/uL (140-450); RED BLOOD CELL COUNT(AUTO) 3.53 MIL/uL (4.20-5.40); RED CELL DISTRIBUTION WIDTH 13.3 % (11.6-13.7)
[2022-12-30 07:06] LABS: ALBUMIN 1.9 g/dL (3.4-5.0); ANION GAP 13.4 (8-16); CREATININE 0.6 mg/dL (0.6-1.3); POTASSIUM 3.4 mmol/L (3.5-5.1); TOTAL BILIRUBIN 0.4 mg/dL (0.0-1.0)
[2022-12-30] MEDS ORDERED: fentaNYL citrate 0.05 MG/ML VIAL ONE (07:23)
[2022-12-30] MEDS ORDERED: SUCCINYLCHOLINE CHLORIDE 200 MG/10 ML VIAL IVP ONE (07:25)
--- NOTE | 2022-12-30 07:33 | NUR ---
PT IS STABLE. ENDORSED PT TO MORNING SHIFT NURSE FOR CONTINUITY OF CARE.
--- NOTE | 2022-12-30 07:34 | NUR ---
RECEIVED BEDSIDE REPORT FROM NIGHTSHIFT NURSE. PT WAS TAKEN TO OR @3498.
[2022-12-30] MEDS ORDERED: BUPIVACAINE-MPF/EPI 0.25% 30 ML VIAL INJ ONE (07:37)
[2022-12-30] MEDS ORDERED: MEPERIDINE 25 MG/ML SYR IVP PRN (07:55)
[2022-12-30] MEDS ORDERED: diphenhydrAMINE 50 MG/ML VIAL IVP PRN (07:55)
[2022-12-30] MEDS ORDERED: LACTATED RINGERS 1,000 ML IV SCH (07:55)
[2022-12-30] MEDS ORDERED: ONDANSETRON 4 MG/2 ML VIAL IVP PRN (07:55)
[2022-12-30] MEDS ORDERED: PROPOFOL 200 MG/20 ML VIAL IV ONE ×2 (08:00→08:11)
[2022-12-30] MEDS ORDERED: ROCURONIUM 50 MG/5 ML VIAL IV ONE ×3 (08:00→09:18)
[2022-12-30] MEDS ORDERED: SEVOFLURANE 250 ML BTL INH ONE (08:00)
[2022-12-30] MEDS ORDERED: ONDANSETRON 4 MG/2 ML VIAL ONE ×2 (08:00→08:14)
[2022-12-30] MEDS ORDERED: DEXAMETHASONE 4 MG/ML VIAL ONE ×2 (08:00→08:15)
[2022-12-30] MEDS ORDERED: fentaNYL citrate 0.05 MG/ML - 50mL vial IV ONE (08:00)
[2022-12-30] MEDS ORDERED: MEPERIDINE 50 MG/ML SYR ONE ×2 (08:00→09:06)
[2022-12-30] MEDS ORDERED: SUGAMMADEX SODIUM 200 MG/2 ML VIAL IV ONE ×2 (08:00→09:23)
[2022-12-30] MEDS ORDERED: ceFAZolin 1,000 MG VIAL ONE ×2 (08:53→08:54)
[2022-12-30] MEDS ORDERED: HYDROmorphone PFS 2 MG/ML SYR ONE (09:57)
[2022-12-30] MEDS: HYDROmorphone 1 MG/ML AMP IVP PRN ×7 (10:00→23:08)
[2022-12-30] MEDS ORDERED: HYDROmorphone 1 MG/ML AMP IVP PRN (11:50)
[2022-12-30] MEDS ORDERED: ACETAMINOPHEN 100 ML IV PRN (11:50)
[2022-12-30 12:00] VITALS: BP 128/83
[2022-12-30] MEDS ORDERED: ACETAMINOPHEN 325 MG TAB PO SCH (12:30)
[2022-12-30] MEDS ORDERED: ACETAMINOPHEN 325 MG TAB PO PRN (12:40)
--- NOTE | 2022-12-30 12:45 | NUR ---
PT RETURNED FROM SURGERY 1045, VITALS ALL WITHIN NORMAL LIMITES UPON ARRIVAL, Q15MIN FOR THE FIRST HOUR, AND Q30MIN FOR THE 2ND HOUR. PT NOW WAS ARMANDO DRAIN TO LEFT SIDE. SHE COMPLAINED OF SEVERE PAIN, MD INFORMED. MD ORDERED PRN PAIN MED. PAIN MED ADMINISTERED, PT REPORTS RELIEF OF PAIN. NO FURTHER NEEDS ARE TO BE MET AT THIS TIME. WILL CONTINUE WITH PT CARE.
[2022-12-30] MEDS: ACETAMINOPHEN 100 ML IV SCH ×2 (13:34→21:21)
[2022-12-30] MEDS: POTASSIUM CHLORIDE 10 MEQ TABER PO PRN (17:31)
--- NOTE | 2022-12-30 19:15 | NUR ---
ENDORSED PT TO NIGHTSHIFT NURSE FOR CONTINUITY OF CARE. PT IS AWAKE AND STABLE.
--- NOTE | 2022-12-30 19:16 | NUR ---
RECEIVED PT FROM MORNING SHIFT NURSE. PT IS AOX4, AMBULATORY, ABLE TO VERBALIZE NEEDS AND ABLE TO FOLLOW COMMANDS. PT IS ON ROOM AIR AND CLEAR LIQUID DIET. PT HAS IV ON RIGHT AC GAUGE 20 RUNNING WITH NS AT 80ML/HR. NO COMPLAIN OF PAIN. PT HAS SURGICAL WOUND ON LEFT SIDE AND ON LOWER MID LATERAL ABDOMEN. PT HAS ARMANDO DRAIN AND ON PUREWICK. ALL SAFETY MEASURES IMPLEMENTED. BED IN LOW POSITION, BED WHEELS ON LOCK AND CALL LIGHT WITHIN REACH.
[2022-12-30 20:00] VITALS: BP 143/88
--- NOTE | 2022-12-30 20:28 | NUR ---
NOTIFIED DR. HIDALGO THAT PT HAS O2 SAT OF 88. DOCTOR ORDER 2L NC. ORDER WAS CARRIED OUT AND MADE.
--- NOTE | 2022-12-30 21:21 | NUR ---
ALL SCHEDULED AND PRESCRIBED MEDICATION WAS GIVEN TO PT PER MD ORDER. ALL SAFETY MEASURES IMPLEMENTED. BED IN LOW POSITION, BED WHEELS ON LOCK AND CALL LIGHT WITHIN REACH.
--- NOTE | 2022-12-30 23:08 | NUR ---
PRN PAIN MEDICATION WAS GIVEN TO PT DUE TO ABDOMINAL PAIN WITH PAIN SCALE OF 9/10. ALL SAFETY MEASURES IMPLEMENTED. BED IN LOW POSITION, BED WHEELS ON LOCK AND CALL LIGHT WITHIN REACH.
--- NOTE | 2022-12-31 02:00 | NUR ---
PT IS ON SLEEP. CHEST RISE AND FALL SYMMETRICALLY NOTED. RESPIRATION IS EVEN AND UNLABORED. ALL SAFETY MEASURES IMPLEMENTED. BED IN LOW POSITION, BED WHEELS ON LOCK AND CALL LIGHT WITHIN REACH.
[2022-12-31] MEDS: HYDROmorphone 1 MG/ML AMP IVP PRN ×4 (03:19→16:08)
--- NOTE | 2022-12-31 03:19 | NUR ---
PRN PAIN MEDICATION IS GIVEN TO PT DUE TO ABD. PAIN WITH PAIN SCALE OF 8/10. ALL SAFETY MEASURES IMPLEMENTED. BED IN LOW POSITION, BED WHEELS ON LOCK AND CALL LIGHT WITHIN REACH.
[2022-12-31 04:00] VITALS: BP 154/96
[2022-12-31] MEDS: NACL 0.9% 1,000 ML IV SCH ×2 (04:00→16:30)
[2022-12-31] MEDS: ACETAMINOPHEN 100 ML IV SCH (04:11)
[2022-12-31] MEDS: metroNIDAZOLE 500 MG/NS PREMIX 100 ML IV SCH ×3 (04:49→20:37)
[2022-12-31 06:48] LABS: BASOPHILS % (AUTO) 0.3 % (0.0-2.0); HEMATOCRIT 32.6 % (36-48); HEMOGLOBIN 10.9 g/dL (12.0-16.0); LYMPHOCYTES # (AUTO) 1.6 K/uL (2.5-16.5); LYMPHOCYTES % (AUTO) 10.5 % (20.5-51.1); MEAN CORPUSCULAR HEMOGLOBIN 31 pg (27-31); MEAN CORPUSCULAR HGB CONC 33 g/dL (33-37); MEAN CORPUSCULAR VOLUME 92.8 fL (80-94); MONOCYTES # (AUTO) 0.7 K/uL (0.8-1.0); MONOCYTES % (AUTO) 4.5 % (1.7-9.3); NEUTROPHILS # (AUTO) 12.6 K/uL (1.8-7.7); NEUTROPHILS % (AUTO) 84.7 % (42.2-75.2); PLATELET COUNT (AUTO) 513 K/uL (140-450); RED BLOOD CELL COUNT(AUTO) 3.52 MIL/uL (4.20-5.40); WHITE BLOOD COUNT (AUTO) 14.8 K/uL (4.8-10.8)
[2022-12-31 07:03] LABS: ALBUMIN 1.7 g/dL (3.4-5.0); ANION GAP 13.2 (8-16); CREATININE 0.7 mg/dL (0.6-1.3); POTASSIUM 4.2 mmol/L (3.5-5.1); TOTAL BILIRUBIN 0.4 mg/dL (0.0-1.0)
--- NOTE | 2022-12-31 07:12 | NUR ---
PT IS STABLE. ENDORSED PT TO MORNING SHIFT NURSE FOR CONTINUITY OF CARE.
--- NOTE | 2022-12-31 08:12 | NUR ---
PT STATES HER GLASSES ARE IN THE OR, CALLED OR, STATED THEY WILL LOOK TO SEE IF THEY FIND THEM. WILL FOLLOW UP.
--- NOTE | 2022-12-31 08:15 | NUR ---
NURSE REPORT REPORT OBTAINED FROM NIGHT NURSE AND THIS NURSE ASSUMED CARE OF PATIENT. VSS. AFEB. MEDICATED FOR PAIN WITH DILAUDID 1 MG IVP AT 0806. IV NS INFUSING AT 80 ML/HR. PRE WICK DRAINING KYLE URINE. ON CLEAR LIQUID AND TAKING FAIR.
--- NOTE | 2022-12-31 08:18 | NUR ---
GLASSES LOCATED AND IN PATIENTS POSSESSION.
--- NOTE | 2022-12-31 16:08 | NUR ---
NURSE NOTES MEDICATED FOR PAIN WITH DILAUDID 1 MG IVP AT 1236 AND AT 1608. VSS. AFEB. PATIENT ASKED FOR NORCO AND MD NOTIFIED AND NORCO WAS ORDERED.
--- NOTE | 2022-12-31 19:15 | NUR ---
NURSE REPORT REPORT GIVEN TO NIGHT NURSE MARYANN TO ASSUME CARE OF PATIENT. ALL QUESTIONS ANSWERED. PAIN MEDS CHANGE FROM IV DILAUDID TO NORCO PER PATIENT REQUEST. BRITTNEY WIN RN
[2022-12-31 19:47] VITALS: BP 126/78
[2022-12-31] MEDS: HYDROcodone/APAP 10/325 MG 1 TAB TAB PO PRN (19:53)
--- NOTE | 2022-12-31 20:00 | NUR ---
ASSUMED CARE OF PATIENT AT THIS TIME. VSS. AFEBRILE. RESPIRATIONS EVEN AND UNLABORED. NO SOB NOTED. O2 SAT 95% ON 3L NC. A/O X 4. ABDOMINAL DRESSING CLEAN DRY AND INTACT WITH ARMANDO DRAIN NOTED TO LEFT ABDOMEN DRAINING WHITE CLOUDY DRAINAGE. C/O OF ABDOMINAL PAIN AT 7/10. MEDICATED WITH NORCO 10MG PO ORDERED. WILL CONTINUE TO MONITOR FOR SAFETY. Rola ROTH RN.
--- NOTE | 2022-12-31 21:30 | NUR ---
ASSISTED PATIENT OOB TO CHAIR AND ENCOURAGED PATIENT TO USE INCENTIVE SPIROMETER. PATIENT VERBALIZED UNDERSTANDING. PATIENT'S MOTHER AT BEDSIDE. WILL CONTINUE TO MONITOR FOR SAFETY. Rola ROTH RN.
--- NOTE | 2022-12-31 23:30 | NUR ---
ASSISTED PATIENT BACK TO BED. PATIENT STATES SHE IS FEELING BETTER AND HAS PASSED SOME GAS. Rola ROTH RN.
[2023-01-01] MEDS: HYDROcodone/APAP 10/325 MG 1 TAB TAB PO PRN ×4 (01:59→20:40)
[2023-01-01] MEDS: NACL 0.9% 1,000 ML IV SCH ×2 (02:03→17:30)
[2023-01-01 04:05] VITALS: BP 117/67
[2023-01-01] MEDS: metroNIDAZOLE 500 MG/NS PREMIX 100 ML IV SCH ×3 (04:58→20:44)
--- NOTE | 2023-01-01 06:00 | NUR ---
PATIENT SLEPT WELL THROUGHOUT THE NIGHT. REMAINS IN STABLE CONDITION. NO ACUTE DISTRESS NOTED. Rola ROTH RN.
[2023-01-01 06:52] LABS: BASOPHILS % (AUTO) 0.1 % (0.0-2.0); EOSINOPHILS # (AUTO) 0.1 K/uL (0-0.4); EOSINOPHILS % (AUTO) 0.3 % (0.0-4.0); HEMATOCRIT 29.2 % (36-48); HEMOGLOBIN 9.7 g/dL (12.0-16.0); LYMPHOCYTES # (AUTO) 2.3 K/uL (2.5-16.5); LYMPHOCYTES % (AUTO) 12.7 % (20.5-51.1); MEAN CORPUSCULAR HEMOGLOBIN 31 pg (27-31); MEAN CORPUSCULAR HGB CONC 33 g/dL (33-37); MEAN CORPUSCULAR VOLUME 92.1 fL (80-94); MONOCYTES # (AUTO) 0.7 K/uL (0.8-1.0); MONOCYTES % (AUTO) 4.1 % (1.7-9.3); NEUTROPHILS # (AUTO) 14.9 K/uL (1.8-7.7); NEUTROPHILS % (AUTO) 82.8 % (42.2-75.2); PLATELET COUNT (AUTO) 523 K/uL (140-450); RED BLOOD CELL COUNT(AUTO) 3.17 MIL/uL (4.20-5.40); RED CELL DISTRIBUTION WIDTH 14.1 % (11.6-13.7)
[2023-01-01 07:10] LABS: ALBUMIN 1.6 g/dL (3.4-5.0); ANION GAP 8.1 (8-16); CARBON DIOXIDE 28.8 mmol/L (21-32); CREATININE 0.6 mg/dL (0.6-1.3); POTASSIUM 3.9 mmol/L (3.5-5.1); TOTAL BILIRUBIN 0.2 mg/dL (0.0-1.0)
[2023-01-01 16:47] VITALS: BP 131/73
--- NOTE | 2023-01-01 18:14 | NUR ---
Pt is a difficult stick. Able to start new 22ga on R upper chest. Pt is now eating regular diet. IVF stopped. Pt continues with antibiotics. Pt weaned from 3L to 1L. Desaturated down into the low 80s with activity and no oxygen. Pt getting out of bed to go to the restroom. Pt with consistent c/o pain every 6 hours.
--- NOTE | 2023-01-01 19:15 | NUR ---
PT IS AWAKE, ALERT AND VERBALLY RESPONSIVE. PT STATED THAT SHE WAS UNSURE ABOUT THE INFECTION SHE HAS AT THIS TIME AND WILL NOT GO HOME UNTIL HER INFECTION RESOLVE. SHE DOES NOT WANT TO GO HOME AND COME BACK AGAIN.
[2023-01-01 20:00] VITALS: BP 125/76
--- NOTE | 2023-01-01 20:40 | NUR ---
PT COMPLAINTS OF SEVERE ABDOMINAL PAIN 9/10, NORCO 10 ADMINISTERED ORDER.
--- NOTE | 2023-01-01 20:40 | NUR ---
PT COMPLAINTS OF SEVERE ABDOMINAL PAIN /, PAIN MEDICATION NORCO 10 ADMINISTERED ORDER.
--- NOTE | 2023-01-01 21:03 | NUR ---
ENCOURAGE PT TO AMBULATE, PT STATED SHE WILL AMBULATE WHEN MEDICATION TAKES PLACE TO REDUCE THE PAIN.
[2023-01-02] MEDS: HYDROcodone/APAP 10/325 MG 1 TAB TAB PO PRN ×2 (03:01→10:51)
--- NOTE | 2023-01-02 03:01 | NUR ---
PT COMPLAINTS OF SEVERE ABDOMINAL PAIN 03/31, PAIN MEDICATION NORCO 10 ADMINISTERED ORDER.
[2023-01-02 04:00] VITALS: BP 137/81
--- NOTE | 2023-01-02 04:01 | NUR ---
PT IS ASLEEP.
[2023-01-02] MEDS: metroNIDAZOLE 500 MG/NS PREMIX 100 ML IV SCH ×3 (05:40→21:43)
[2023-01-02 06:14] LABS: BASOPHILS % (AUTO) 0.1 % (0.0-2.0); EOSINOPHILS # (AUTO) 0.1 K/uL (0-0.4); EOSINOPHILS % (AUTO) 0.5 % (0.0-4.0); HEMATOCRIT 29.2 % (36-48); HEMOGLOBIN 9.8 g/dL (12.0-16.0); LYMPHOCYTES # (AUTO) 2.5 K/uL (2.5-16.5); LYMPHOCYTES % (AUTO) 13.5 % (20.5-51.1); MEAN CORPUSCULAR HEMOGLOBIN 31 pg (27-31); MEAN CORPUSCULAR HGB CONC 34 g/dL (33-37); MEAN CORPUSCULAR VOLUME 91.8 fL (80-94); MONOCYTES # (AUTO) 0.8 K/uL (0.8-1.0); MONOCYTES % (AUTO) 4.6 % (1.7-9.3); NEUTROPHILS # (AUTO) 14.8 K/uL (1.8-7.7); NEUTROPHILS % (AUTO) 81.3 % (42.2-75.2); PLATELET COUNT (AUTO) 588 K/uL (140-450); RED BLOOD CELL COUNT(AUTO) 3.18 MIL/uL (4.20-5.40); RED CELL DISTRIBUTION WIDTH 13.8 % (11.6-13.7); WHITE BLOOD COUNT (AUTO) 18.2 K/uL (4.8-10.8)
--- NOTE | 2023-01-02 06:50 | NUR ---
DRAIN 20CC OF FLUID FROM ARMANDO DRAIN. PT IS STABLE.
[2023-01-02 16:55] VITALS: BP 137/81
[2023-01-02] MEDS: HYDROcodone/APAP 5/325 MG 1 TAB TAB PO PRN (17:34)
--- NOTE | 2023-01-02 17:49 | NUR ---
Dressing change around ARMANDO done. No drainage noted. ARMANDO drain with serous drainage, with 10mL for the whole shift. Pt requesting [place] 5 for pain. Pt on 1L/NC. Ambulating.
--- NOTE | 2023-01-02 19:30 | NUR ---
PT AMBULATES IN THE HOLEWAY WITH .
[2023-01-02 20:00] VITALS: BP 117/68
--- NOTE | 2023-01-03 00:15 | NUR ---
SURGERY SITES ON ABDOMEN REMAIN DRY AND CLEAN.
[2023-01-03] MEDS: HYDROcodone/APAP 10/325 MG 1 TAB TAB PO PRN ×2 (00:49→18:00)
--- NOTE | 2023-01-03 00:49 | NUR ---
PT COMPLAINTS OF ABDOMINAL PAIN 05/01. PAIN MEDICATION NORCO 10 ADMINISTERED ORDER.
--- NOTE | 2023-01-03 01:49 | NUR ---
PT IS SLEEPING, NO FACIAL GRIMACING NOTED.
[2023-01-03 04:00] VITALS: BP 119/71
[2023-01-03] MEDS: metroNIDAZOLE 500 MG/NS PREMIX 100 ML IV SCH ×3 (05:28→22:54)
--- NOTE | 2023-01-03 06:30 | NUR ---
DRAIN 15 CC DRAINAGE FROM ARMANDO DRAIN.
[2023-01-03 09:04] LABS: ALBUMIN 1.7 g/dL (3.4-5.0); ANION GAP 10.3 (8-16); CARBON DIOXIDE 29.5 mmol/L (21-32); CREATININE 0.6 mg/dL (0.6-1.3); POTASSIUM 3.8 mmol/L (3.5-5.1); TOTAL BILIRUBIN 0.3 mg/dL (0.0-1.0)
[2023-01-03 09:31] LABS: BASOPHILS # (AUTO) 0.1 K/uL (0.00-0.22); BASOPHILS % (AUTO) 0.6 % (0.0-2.0); EOSINOPHILS # (AUTO) 0.2 K/uL (0-0.4); EOSINOPHILS % (AUTO) 1.2 % (0.0-4.0); HEMATOCRIT 29.3 % (36-48); HEMOGLOBIN 9.9 g/dL (12.0-16.0); LYMPHOCYTES # (AUTO) 2.4 K/uL (2.5-16.5); MEAN CORPUSCULAR HEMOGLOBIN 31 pg (27-31); MEAN CORPUSCULAR HGB CONC 34 g/dL (33-37); MONOCYTES % (AUTO) 6.1 % (1.7-9.3); NEUTROPHILS # (AUTO) 12.3 K/uL (1.8-7.7); NEUTROPHILS % (AUTO) 77.1 % (42.2-75.2); PLATELET COUNT (AUTO) 630 K/uL (140-450); RED BLOOD CELL COUNT(AUTO) 3.19 MIL/uL (4.20-5.40); RED CELL DISTRIBUTION WIDTH 13.9 % (11.6-13.7); WHITE BLOOD COUNT (AUTO) 15.9 K/uL (4.8-10.8)
--- NOTE | 2023-01-03 12:19 | NUR ---
spoke w pt this a.m. and ordered CT scan. Pt's saline lock is a 22G. Because pt is a hard stick, ER was notified and will send s/o to attempt restart.
--- NOTE | 2023-01-03 14:59 | NUR ---
01/03/23 RD INITIAL ASSESSMENT COMPLETED PLEASE REFER TO NUTRITION ASSESSMENT UNDER CARE ACTIVITY FOR ESTIMATED NUTRITIONAL NEEDS. 1. CONTINUE REGULAR DIET TOLERATED 2. MONITOR PO INTAKE AND NUTRITION RELATED LAB VALUES 3. RD TO FOLLOW-UP 7 DAYS, LOW RISK REVIEWED BY RUDOLPH GANT RD
[2023-01-03 20:00] VITALS: BP 120/66
[2023-01-04] MEDS: ZOLPIDEM 5 MG TAB PO PRN (00:34)
[2023-01-04 04:00] VITALS: BP 129/79
[2023-01-04] MEDS: metroNIDAZOLE 500 MG/NS PREMIX 100 ML IV SCH ×3 (05:06→20:42)
[2023-01-04 06:29] LABS: BASOPHILS % (AUTO) 0.1 % (0.0-2.0); EOSINOPHILS # (AUTO) 0.2 K/uL (0-0.4); EOSINOPHILS % (AUTO) 1.2 % (0.0-4.0); HEMATOCRIT 29.3 % (36-48); HEMOGLOBIN 9.8 g/dL (12.0-16.0); MEAN CORPUSCULAR HEMOGLOBIN 30 pg (27-31); MEAN CORPUSCULAR HGB CONC 33 g/dL (33-37); MEAN CORPUSCULAR VOLUME 91.2 fL (80-94); MONOCYTES # (AUTO) 1.1 K/uL (0.8-1.0); MONOCYTES % (AUTO) 6.4 % (1.7-9.3); NEUTROPHILS # (AUTO) 12.2 K/uL (1.8-7.7); NEUTROPHILS % (AUTO) 74.3 % (42.2-75.2); PLATELET COUNT (AUTO) 703 K/uL (140-450); RED BLOOD CELL COUNT(AUTO) 3.21 MIL/uL (4.20-5.40); RED CELL DISTRIBUTION WIDTH 13.6 % (11.6-13.7); WHITE BLOOD COUNT (AUTO) 16.5 K/uL (4.8-10.8)
[2023-01-04 06:31] LABS: ALBUMIN 1.7 g/dL (3.4-5.0); ANION GAP 12.1 (8-16); CARBON DIOXIDE 27.9 mmol/L (21-32); CREATININE 0.6 mg/dL (0.6-1.3); TOTAL BILIRUBIN 0.2 mg/dL (0.0-1.0)
[2023-01-04] MEDS ORDERED: FLUMAZENIL 0.5 MG/5 ML VIAL IVP ONE (11:56)
[2023-01-04] MEDS ORDERED: NALOXONE 0.4 MG/ML VIAL ONE (11:57)
[2023-01-04] MEDS ORDERED: MIDAZOLAM 2 MG/2 ML VIAL ONE (11:58)
[2023-01-04] MEDS ORDERED: fentaNYL citrate 0.05 MG/ML VIAL ONE (11:58)
[2023-01-04 12:00] VITALS: BP 131/78
[2023-01-04 12:00] LABS: PROTHROMBIN TIME 11.1 secs (10.8-13.4)
[2023-01-04] MEDS: HYDROcodone/APAP 5/325 MG 1 TAB TAB PO PRN (12:10)
--- NOTE | 2023-01-04 13:50 | NUR ---
PT. OFF THE FLOOR GOING TO CT FOR DRAINAGE
[2023-01-04] MEDS ORDERED: LIDOCAINE MPF 2% 100 MG/5 ML VIAL INJ ONE (14:30)
[2023-01-04] MEDS ORDERED: LIDOCAINE 2% 1000 MG/50 ML VIAL INJ ONE (14:51)
--- NOTE | 2023-01-04 15:35 | NUR ---
PT. BACK ON THE FLOOR FROM CT DRAINAGE, PT. WITH ACCORDION DRAIN TO RT. ABDOMEN, DRAINING PURULENT FLUID
[2023-01-04 16:00] VITALS: BP 139/88
--- NOTE | 2023-01-04 17:22 | NUR ---
PER ALESSANDRO HICKS TO REMOVE VIDYA, VIDYA REMOVED PER ORDERS STERI STRIPS PLACED AND ABDOMINAL BINDER ADMINISTERED
[2023-01-04] MEDS: HYDROcodone/APAP 10/325 MG 1 TAB TAB PO PRN (18:37)
--- NOTE | 2023-01-04 20:00 | NUR ---
RECEIVED PT FROM DAY NURSE FOR CONTINUITY OF CARE. PT AWAKE ,ALERT AND ORIENTED X4, ON ROOM AIR.NO COMPLAINS OF PAIN.PT IS STABLE.POC DISCUSSED. ALL PRECAUTIONS IN PLACE. CALL LIGHT WITHIN REACH. WILL CONTINUE TO MONITOR.
--- NOTE | 2023-01-04 21:00 | NUR ---
SCHEDULED MEDICATION GIVEN. PT TOLERATED WELL. WILL CONTINUE TO MONITOR.
[2023-01-05 04:00] VITALS: BP 135/82
[2023-01-05] MEDS: metroNIDAZOLE 500 MG/NS PREMIX 100 ML IV SCH ×3 (04:56→20:16)
--- NOTE | 2023-01-05 05:00 | NUR ---
SCHEDULED MEDICATION GIVEN. PT TOLERATED WELL. WILL CONTINUE TO MONITOR.
--- NOTE | 2023-01-05 06:26 | NUR ---
PT IS STABLE. NO ACUTE EVENT THROUGHOUT THE NIGHT. NO S/SX OF DISTRESS AT THIS MOMENT. NO COMPLAINS OF PAIN. ALL NEEDS MET.ALL PRECAUTIONS IN PLACE. CALL LIGHT WITHIN REACH. WILL ENDORSE TO DAY SHIFT NURSE.
[2023-01-05 06:49] LABS: BASOPHILS # (AUTO) 0.1 K/uL (0.00-0.22); BASOPHILS % (AUTO) 0.4 % (0.0-2.0); EOSINOPHILS # (AUTO) 0.2 K/uL (0-0.4); EOSINOPHILS % (AUTO) 1.5 % (0.0-4.0); HEMATOCRIT 30.1 % (36-48); LYMPHOCYTES # (AUTO) 2.6 K/uL (2.5-16.5); LYMPHOCYTES % (AUTO) 19.3 % (20.5-51.1); MEAN CORPUSCULAR HEMOGLOBIN 31 pg (27-31); MEAN CORPUSCULAR HGB CONC 33 g/dL (33-37); MEAN CORPUSCULAR VOLUME 92.7 fL (80-94); MONOCYTES # (AUTO) 0.8 K/uL (0.8-1.0); MONOCYTES % (AUTO) 6.3 % (1.7-9.3); NEUTROPHILS # (AUTO) 9.7 K/uL (1.8-7.7); NEUTROPHILS % (AUTO) 72.5 % (42.2-75.2); PLATELET COUNT (AUTO) 769 K/uL (140-450); RED BLOOD CELL COUNT(AUTO) 3.25 MIL/uL (4.20-5.40); RED CELL DISTRIBUTION WIDTH 13.8 % (11.6-13.7); WHITE BLOOD COUNT (AUTO) 13.3 K/uL (4.8-10.8)
--- NOTE | 2023-01-05 07:09 | NUR ---
RECEIVED REPORT FROM REHAB RN NURSE, IMAN, FOR CONTINUITY OF CARE. PT IN BED SLEEPING AT THIS TIME. RESPIRATIONS ARE EVEN AND UNLABORED ON ROOM AIR. NO SIGNS OF DISTRESS NOTED. PT IS ALERT AND ORIENTED X4, ABLE TO VERBALIZE NEEDS, ABLE TO FOLLOW COMMANDS. PT IS ON REGULAR DIET, TOLERATING WELL. BOWEL SOUNDS PRESENT IN ALL QUADRANTS. LAST BOWEL MOVEMENT WAS 01/04/23. PT CONTINENT OF BOWEL AND BLADDER. SKIN IS WARM, DRY, NON-INTACT; PT HAS 2 SURGICAL SITES WITH DRAINS. NO COMPLAINTS OF PAIN OR DISCOMFORT AT THIS TIME. CALL LIGHT WITHIN REACH. ALL SAFETY MEASURES IN PLACE.
[2023-01-05 07:19] LABS: ALBUMIN 1.9 g/dL (3.4-5.0); ANION GAP 11.9 (8-16); CREATININE 0.6 mg/dL (0.6-1.3); POTASSIUM 3.9 mmol/L (3.5-5.1); TOTAL BILIRUBIN 0.2 mg/dL (0.0-1.0)
[2023-01-05 08:00] VITALS: BP 134/81
--- NOTE | 2023-01-05 10:19 | NUR ---
WENT TO DO ROUNDS ON PT. PT IN BED ON HER PHONE. NO COMPLAINTS OF PAIN OR DISCOMFORT.
--- NOTE | 2023-01-05 12:16 | NUR ---
PT CALLED STATED THAT HER DRESSINGS WERE SOILED. NURSE WENT IN AND CHANGED DRESSING. PT STATED THAT NURSE THAT WAS WITH HER YESTERDAY REMOVED VIDYA AT DR NULL REQUEST, AND THAT NURSE TOLD HER THAT IF SHE NEEDED DRESSINGS CHANGED THAT OR NURSES WILL COME AND CHANGE DRESSING. THIS NURSE EDUCATED PT REGARDING DR NULL'S ORDERS TO REMOVE VIDYA, WELL HAVING NURSING CHANGE HER DRESSING NEEDED. PT VERBALIZED UNDERSTANDING.
--- NOTE | 2023-01-05 13:27 | NUR ---
WOUND ASSESSMENT DONE WITH PRIMARY NURSE LEELEE ON THIS 32 Y/O PT WITH EXPLORATORY LAPAROTOMY AND DRAINAGE OF RETROPERITONEAL ABSCESS. PT. HAD S/P CT GUIDE DRAIN YESTERDAY. LUQ ABDOMINAL SURGICAL WOUND CLOSE WOUND WITH STERILE STRIPS DRY AND CLEAN. NO S/S OF WOUND DEHISCENCE. LLQ ABD ARMANDO DRAIN, SECURED WITH SUTURES, SMALL AMOUNT SEROSANGUINEOUS DRAINAGE OBSERVED IN THE BALL. RUQ ABDOMEN WITH ACCORDION DRAIN SMALL AMOUNT SEROSANGUINEOUS DRAINAGE. MID ABDOMEN SURGICAL WOUND NO S/S OF WOUND DEHISCENCE MULTIPLE STERILE STRIPS DRY AND CLEAN. INFERIOR ASPECT OF WOUND NO STERILE STRIPS, CLOSED WOUND WITH MOIST SKIN. PER PT. ONE OF THE NURSE REMOVED THE VIDYA YESTERDAY. PER PRIMARY NURSE SHE DOES NOT KNOW WHO DID IT. MID ABD WOUND CLEANSE WITH NS, PAT COMPLETELY DRY, DRY COMPOSITE DRESSING APPLIED. ABDOMINAL BINDER APPLY. POS OP SURGICAL WOUND CARE EXPLAINED AND INFORM PT TO CONTINUE TO FOLLOW UP WITH SURGEON. PT. VERBALIZES UNDERSTOOD. POC DISCUSSED WITH PRIMARY NURSE.
[2023-01-05] MEDS: HYDROcodone/APAP 10/325 MG 1 TAB TAB PO PRN ×2 (13:56→21:16)
--- NOTE | 2023-01-05 14:00 | NUR ---
PT COMPLAINING OF PAIN, 02/28. MEDICATED.
[2023-01-05] MEDS ORDERED: GAUZE TP PRN (14:35)
--- NOTE | 2023-01-05 15:00 | NUR ---
WENT TO RE-ASSESS PT PAIN. PT RESTING AT THIS TIME.
--- NOTE | 2023-01-05 15:29 | NUR ---
DR NULL HERE TO SEE PT. REMOVED PT ARMANDO DRAIN.
[2023-01-05 16:00] VITALS: BP 121/78
--- NOTE | 2023-01-05 17:30 | NUR ---
WENT TO CHECK ON PT. PT SLEEPING AT THIS TIME. RESPIRATIONS ARE EVEN AND UNLABORED. NO SIGNS OF DISTRESS NOTED.
--- NOTE | 2023-01-05 19:08 | NUR ---
ENDORSED PT TO FIBER OPTIC ASSEMBLY WORKER NURSESUMAN, FOR CONTINUITY OF CARE. PT IS STABLE.
--- NOTE | 2023-01-05 19:09 | NUR ---
RECEIVED REPORT FROM MORNING SHIFT NURSE. PT IS AOX4, WITH RELATIVE BEDSIDE, AMBULATORY, ABLE TO VERBALIZE NEEDS AND ABLE TO FOLLOW COMMANDS. PT IS ON ROOM AIR AND ON REGULAR DIET. PT HAS AN IV ON LEFT AC GAUGE 22, SALINE LOCK. PT HAS MIDLATERAL SURGICAL WOUND AND HAS RIGHT ACCORDIAN DRAIN. PT DENIES PAIN AND NO S/S OF RESPIRATORY DISTRESS NOTED. ALL SAFETY MEASURES IMPLEMENTED. BED IN LOW POSITION AND CALL LIGHT WITHIN REACH.
--- NOTE | 2023-01-05 20:16 | NUR ---
SCHEDULED AND PRESCRIBED MEDICATION WAS GIVEN TO PT PER MD ORDER. ALL SAFETY MEASURES IMPLEMENTED. BED WHEELS ON LOCK, BED IN LOW POSITION AND CALL LIGHT WITHIN REACH.
--- NOTE | 2023-01-05 21:16 | NUR ---
PRN PAIN MEDICATION WAS GIVEN TO DUE TO ABDOMINAL PAIN WITH PAIN SCALE OF 6/10.
[2023-01-06] VITALS: BP 126/74
--- NOTE | 2023-01-06 02:00 | NUR ---
CHECKED THE PT, STILL ON SLEEP. CHEST RISE AND FALL SYMMETRICALLY NOTED. RESPIRATION IS EVEN AND UNLABORED. ALL SAFETY MEASURES IMPLEMENTED. BED IN LOW POSITION, BED WHEELS ON LOCK AND CALL LIGHT WITHIN REACH.
[2023-01-06] MEDS: metroNIDAZOLE 500 MG/NS PREMIX 100 ML IV SCH ×4 (04:22→23:21)
[2023-01-06 06:59] LABS: ALBUMIN 1.9 g/dL (3.4-5.0); ANION GAP 11.4 (8-16); CARBON DIOXIDE 29.5 mmol/L (21-32); CREATININE 0.6 mg/dL (0.6-1.3); POTASSIUM 3.9 mmol/L (3.5-5.1); TOTAL BILIRUBIN 0.2 mg/dL (0.0-1.0)
[2023-01-06 07:01] LABS: BASOPHILS # (AUTO) 0.1 K/uL (0.00-0.22); BASOPHILS % (AUTO) 0.5 % (0.0-2.0); EOSINOPHILS # (AUTO) 0.2 K/uL (0-0.4); EOSINOPHILS % (AUTO) 1.8 % (0.0-4.0); LYMPHOCYTES # (AUTO) 2.9 K/uL (2.5-16.5); LYMPHOCYTES % (AUTO) 23.7 % (20.5-51.1); MEAN CORPUSCULAR HEMOGLOBIN 31 pg (27-31); MEAN CORPUSCULAR HGB CONC 34 g/dL (33-37); MEAN CORPUSCULAR VOLUME 91.1 fL (80-94); MONOCYTES # (AUTO) 0.8 K/uL (0.8-1.0); MONOCYTES % (AUTO) 6.6 % (1.7-9.3); NEUTROPHILS # (AUTO) 8.3 K/uL (1.8-7.7); NEUTROPHILS % (AUTO) 67.4 % (42.2-75.2); PLATELET COUNT (AUTO) 762 K/uL (140-450); RED BLOOD CELL COUNT(AUTO) 3.29 MIL/uL (4.20-5.40); WHITE BLOOD COUNT (AUTO) 12.4 K/uL (4.8-10.8)
--- NOTE | 2023-01-06 07:20 | NUR ---
PT IS STABLE. ENDORSED PT TO MORNING SHIFT FOR CONTINUITY OF CARE.
--- NOTE | 2023-01-06 07:21 | NUR ---
RECEIVED PT FROM [employer]PPORT CONSULTANT NURSE FOR CONTINUITY OF CARE. PT IS IN BED TALKING ON PHONE. AOX4. RESPIRATIONS EVEN AND UNLABORED ON RA. ABLE TO VERBALIZE NEEDS. SKIN WARM AND DRY. IV ON LAC 22G, SL. CALL LIGHT WITHIN REACH. ALL SAFETY PRECAUTIONS IN PLACE.
[2023-01-06 08:00] VITALS: BP 121/87
[2023-01-06] MEDS: GAUZE TP SCH (13:22)
--- NOTE | 2023-01-06 14:00 | NUR ---
ROCEPHIN GIVEN. MNURUM
[2023-01-06 16:00] VITALS: BP 122/87
--- NOTE | 2023-01-06 16:03 | NUR ---
ROCEPHIN IV GIVEN BY NESHA HERBERT.
--- NOTE | 2023-01-06 17:53 | NUR ---
STARTED IV WITH 20G ON LEFT AC AND PT DID NOT WANT TO START IV RIGHT AWAY, SHE WANT TO SEE HER KID OUTSIDE. [id number]
[2023-01-06] MEDS: HYDROcodone/APAP 10/325 MG 1 TAB TAB PO PRN (19:04)
--- NOTE | 2023-01-06 19:30 | NUR ---
ENDORSED PT TO [employer] TEAM LEADER NURSE FOR CONTINUITY OF CARE. PT IS STABLE.
--- NOTE | 2023-01-06 19:31 | NUR ---
RECEIVED REPORT FROM DAY SHIFT NURSE MARKO FOR CONTINUITY OF CARE. PT A/A/O IN BED WITH FAMILY MEMBER AT BEDSIDE. AMBULATORY. ABLE TO MAKE NEEDS KNOWN. RESPIRATIONS EVEN AND UNLABORED ON RA. NO DISTRESS NOTED. NOTED RIGHT ACCORDION DRAIN AND MID-LATERAL SURGICAL WOUND COVERED WITH DRESSING, DRY AND INTACT. POC DISCUSSED. REPORT GIVEN TO NESHA CA. CALL LIGHT WITHIN REACH. SAFETY PRECAUTIONS IN PLACE.
[2023-01-06 20:00] VITALS: BP 118/74
[2023-01-06] MEDS ORDERED: MELATONIN 3 MG TAB PO PRN (20:30)
--- NOTE | 2023-01-06 20:30 | NUR ---
PT STATED THAT SHE HASN'T BEEN SLEEPING FOR 3 DAYS NOW AND SHE NEEDED SOMETHING FOR SLEEP. MD MADE AWARE AND RECEIVED ORDER FOR MELATONIN 3MG PRN Q HS. PT REFUSED TO TAKE MELATONIN AT THIS MOMENT, WILL INFORM NURSE.
--- NOTE | 2023-01-06 21:01 | NUR ---
metronidazole tiv not given - emar review - metronidazole just given by am shift at 1821 - too close the time interval - instruct RAMIREZ LAWRENCE - TO CALL PHARMACIST - TO REVISE THE TIME SCHED .- HOWARD VERBALIZES UNDERSTANDING .
--- NOTE | 2023-01-06 21:05 | NUR ---
VERIFIED WITH EMMA FROM [facility] TO GIVE 2100 DOSE IV FLAGYL AT 2300, THEN CONTINUE WITH THE 5AM DOSE AFTER. RELAYED MESSAGE TO NESHA CA.
--- NOTE | 2023-01-06 22:54 | NUR ---
BEDSIDE REPORT GIVEN TO NESHA LONG FOR CONTINUITY OF CARE. PT AWARE THAT SHE'S NPO AFTER MN. NPO SIGN PLACED AT THE DOOR. PT IN STABLE CONDITION.
--- NOTE | 2023-01-06 22:56 | NUR ---
RECEIVED REPORT FROM HOWARD FOR CONTINUITY OF CARE. PATIENT SITTING IN BED DRINKING WATER. NO SOB. CALL LIGHT ON EASY REACH. WILL CONTINUE TO MONITOR.
--- NOTE | 2023-01-07 01:39 | NUR ---
PATIENT COMPLAINED OF FEELING ANXIOUS. NOTIFIED DR MUKHERJEE WITH ORDERS NOTED, CARRIED OUT.
[2023-01-07] MEDS: LORazepam 2 MG/ML VIAL IVP PRN ×2 (02:26→13:03)
[2023-01-07] MEDS: metroNIDAZOLE 500 MG/NS PREMIX 100 ML IV SCH ×3 (04:45→20:19)
--- NOTE | 2023-01-07 07:07 | NUR ---
GAVE BEDSIDE REPORT TO MORNING NURSE FOR CONTINUITY OF CARE. PATIENT STABLE.
[2023-01-07 07:31] LABS: BASOPHILS % (AUTO) 0.3 % (0.0-2.0); EOSINOPHILS # (AUTO) 0.2 K/uL (0-0.4); EOSINOPHILS % (AUTO) 1.5 % (0.0-4.0); HEMATOCRIT 30.1 % (36-48); HEMOGLOBIN 10.2 g/dL (12.0-16.0); LYMPHOCYTES # (AUTO) 2.2 K/uL (2.5-16.5); LYMPHOCYTES % (AUTO) 18.9 % (20.5-51.1); MEAN CORPUSCULAR HEMOGLOBIN 31 pg (27-31); MEAN CORPUSCULAR HGB CONC 34 g/dL (33-37); MEAN CORPUSCULAR VOLUME 91.3 fL (80-94); MONOCYTES # (AUTO) 0.7 K/uL (0.8-1.0); MONOCYTES % (AUTO) 5.8 % (1.7-9.3); NEUTROPHILS # (AUTO) 8.4 K/uL (1.8-7.7); NEUTROPHILS % (AUTO) 73.5 % (42.2-75.2); PLATELET COUNT (AUTO) 799 K/uL (140-450); RED CELL DISTRIBUTION WIDTH 13.5 % (11.6-13.7); WHITE BLOOD COUNT (AUTO) 11.4 K/uL (4.8-10.8)
[2023-01-07 08:00] VITALS: BP 135/78
[2023-01-07 08:36] LABS: PROTHROMBIN TIME 10.6 secs (10.8-13.4)
[2023-01-07 09:07] LABS: ALBUMIN 2.2 g/dL (3.4-5.0); ANION GAP 13.1 (8-16); CARBON DIOXIDE 27.7 mmol/L (21-32); CREATININE 0.6 mg/dL (0.6-1.3); POTASSIUM 3.8 mmol/L (3.5-5.1); TOTAL BILIRUBIN 0.1 mg/dL (0.0-1.0)
[2023-01-07] MEDS: GAUZE TP SCH (13:00)
[2023-01-07] MEDS ORDERED: MIDAZOLAM 2 MG/2 ML VIAL ONE ×2 (14:57→15:22)
[2023-01-07] MEDS ORDERED: fentaNYL citrate 0.05 MG/ML VIAL ONE (14:58)
[2023-01-07] MEDS ORDERED: fentaNYL citrate 0.05 MG/ML - 50mL vial IV ONE ×2 (15:22)
[2023-01-07] MEDS ORDERED: LIDOCAINE 2% 1000 MG/50 ML VIAL INJ ONE (15:39)
[2023-01-07 16:00] VITALS: BP 135/58
[2023-01-07] MEDS: HYDROcodone/APAP 10/325 MG 1 TAB TAB PO PRN ×3 (16:42→22:47)
[2023-01-07 20:00] VITALS: BP 120/73
--- NOTE | 2023-01-07 20:19 | NUR ---
DUE MEDS GIVEN ORDERED.
--- NOTE | 2023-01-07 22:47 | NUR ---
PATIENT COMPLAINED OF SEVERE ABDOMINAL PAIN, MEDICATED.
[2023-01-08] MEDS: LORazepam 2 MG/ML VIAL IVP PRN (01:34)
[2023-01-08] MEDS: metroNIDAZOLE 500 MG/NS PREMIX 100 ML IV SCH (04:33)
[2023-01-08] MEDS: HYDROcodone/APAP 10/325 MG 1 TAB TAB PO PRN (06:05)
[2023-01-08 07:17] LABS: BASOPHILS % (AUTO) 0.3 % (0.0-2.0); EOSINOPHILS # (AUTO) 0.1 K/uL (0-0.4); HEMOGLOBIN 10.5 g/dL (12.0-16.0); LYMPHOCYTES # (AUTO) 2.3 K/uL (2.5-16.5); WHITE BLOOD COUNT (AUTO) 12.7 K/uL (4.8-10.8)
[2023-01-08 07:22] LABS: EOSINOPHILS % (AUTO) 0.8 % (0.0-4.0); HEMATOCRIT 31.3 % (36-48); LYMPHOCYTES % (AUTO) 17.9 % (20.5-51.1); MEAN CORPUSCULAR HEMOGLOBIN 31 pg (27-31); MEAN CORPUSCULAR HGB CONC 34 g/dL (33-37); MEAN CORPUSCULAR VOLUME 91.6 fL (80-94); MONOCYTES # (AUTO) 0.7 K/uL (0.8-1.0); MONOCYTES % (AUTO) 5.8 % (1.7-9.3); NEUTROPHILS # (AUTO) 9.6 K/uL (1.8-7.7); NEUTROPHILS % (AUTO) 75.2 % (42.2-75.2); RED BLOOD CELL COUNT(AUTO) 3.42 MIL/uL (4.20-5.40); RED CELL DISTRIBUTION WIDTH 13.8 % (11.6-13.7)
[2023-01-08 07:45] LABS: ALBUMIN 2.2 g/dL (3.4-5.0); CREATININE 0.7 mg/dL (0.6-1.3); TOTAL BILIRUBIN 0.2 mg/dL (0.0-1.0)
[2023-01-08 08:01] LABS: PLATELET COUNT (AUTO) 816 K/uL (140-450)
[2023-01-08] MEDS ORDERED: ACET-8905 PO (10:24)
[2023-01-08] MEDS ORDERED: METR-435 PO (10:24)
[2023-01-08] MEDS ORDERED: LEVO750T75 PO (10:24)
[2023-01-08 10:57] VITALS: BP 126/87
== END 2023-01-08 12:40 | disposition home health service (06) | DRG 856 ==
LOC: MED 08:32 → MMU 13:32 → MTU 15:37
PROVIDERS: ADMIT Internal Medicine; ATTEND Internal Medicine
PROC: 0W9H00Z Drainage of Retroperitoneum with Drainage Device, Open Approach (ICD-10-PCS; 2022-12-30)
PROC: 0DNH0ZZ Release Cecum, Open Approach (ICD-10-PCS; 2022-12-30)
PROC: 0WJG4ZZ Inspection of Peritoneal Cavity, Percutaneous Endoscopic Approach (ICD-10-PCS; principal; 2022-12-30 07:30)
PROC: 0F943ZZ Drainage of Gallbladder, Percutaneous Approach (ICD-10-PCS; 2023-01-04)
PROC: BF42ZZZ Ultrasonography of Gallbladder (ICD-10-PCS; 2023-01-04)
PROC: 0W9G30Z Drainage of Peritoneal Cavity with Drainage Device, Percutaneous Approach (ICD-10-PCS; 2023-01-08)
PROC: 0F9130Z Drainage of Right Lobe Liver with Drainage Device, Percutaneous Approach (ICD-10-PCS; 2023-01-08)
PROC: BF45ZZZ Ultrasonography of Liver (ICD-10-PCS; 2023-01-08)
DX: T81.43XA Infection following a procedure, organ and space surgical site, initial encounter (principal); A41.9 Sepsis, unspecified organism; E43 Unspecified severe protein-calorie malnutrition; N13.6 Pyonephrosis; I10 Essential (primary) hypertension; K68.11 Postprocedural retroperitoneal abscess; R74.01 Elevation of levels of liver transaminase levels; D64.9 Anemia, unspecified; E66.01 Morbid (severe) obesity due to excess calories; B96.20 Unspecified Escherichia coli [E. coli] as the cause of diseases classified elsewhere; Y83.6 Removal of other organ (partial) (total) as the cause of abnormal reaction of the patient, or of later complication, without mention of misadventure at the time of the procedure; Z20.822 Contact with and (suspected) exposure to COVID-19; Z79.1 Long term (current) use of non-steroidal anti-inflammatories (NSAID); Z79.899 Other long term (current) drug therapy; Z90.49 Acquired absence of other specified parts of digestive tract; Z68.39 Body mass index [BMI] 39.0-39.9, adult; Y92.89 Other specified places as the place of occurrence of the external cause
CPT/HCPCS: 36415; 72192; 75989; 76360; 76705; 80053; 81001; 82374; 83605; 83690; 83735; 84703; 85025; 85610; 85730; 87040; 87070; 87075; 87081; 87086; 87205; 88300; 94640; 96365; 99291; J0330; J0690; J0696; J1100; J1170; J2001; J2060; J2175; J2250; J2310; J2405; J2543; J2704; J3010; J3490; J7060; J7120; Q0092; Q9967